=== PATIENT | male | born 1955 | race Caucasian/White ===

== ENCOUNTER → 2023-11-26 10:47 | Outpatient (REF) | payer MEDICARE, OTHER, SELFPAY ==
[2023-11-26 11:59] LABS: % Basophils 0.6 % (0-2); % Eosinophils 2.9 % (0-6); % Immature Granulocytes 0.2 % (0-0.5); % Lymphocytes 18.9 % (20.5-51.1); % Monocytes 6.5 % (1.7-9.3); % Neutrophils 70.9 % (42.2-75.2); Absolute Eosinophils 0.2 10^3/uL (0-0.7); Absolute Monocytes 0.3 10^3/uL (0.1-0.6); Absolute Neutrophils 3.7 10^3/uL (1.4-6.5); Hematocrit 38.5 % (39.0-52.0); Hemoglobin 12.9 g/dL (13.0-18.0); Mean Corp Hgb Conc. 33.5 g/dL (33.0-37.0); Mean Corpuscular Hgb 31.1 pg (27.0-31.0); Mean Corpuscular Volume 92.8 fL (80.0-94.0); Mean Platelet Volume 9.7 fL (7.4-10.4); Nucleated Red Blood Cells % 0 % (-); Platelet Count 162 10^3/uL (130-400); Red Blood Cell Count 4.15 10^6/uL (4.70-6.10); Red Cell Dist. Width 14.1 % (11.5-14.5); White Blood Cell Count 5.2 10^3/uL (4.8-10.8)
[2023-11-26 12:08] LABS: INR 1.16; PT 14.8 Sec (11.4-14.6)
[2023-11-26 12:22] LABS: ALT (SGPT) 24 U/L (0-50); AST (SGOT) 29 U/L (17-59); Albumin 3.9 g/dl (3.5-5.0); Alkaline Phosphatase 89 U/L (38-126); Blood Urea Nitrogen 30 mg/dl (9-20); Calcium 9.5 mg/dl (8.4-10.2); Carbon Dioxide 31 mmol/L (22-30); Chloride 106 mmol/L (98-107); Glucose 104 mg/dl (70-99); Magnesium 2.4 mg/dl (1.6-2.3); Potassium 4.3 mmol/L (3.5-5.1); Sodium 142 mmol/L (135-145); Total Bilirubin 0.5 mg/dl (0.2-1.3); Total Protein 6.4 g/dl (6.3-8.2); eGFR > 60.00
== END ==
LOC: SDSPAT 10:47
PROVIDERS: ATTENDING PHYSICIAN Internal Medicine Cardiovascular Disease; FAMILY PHYSICIAN Family Medicine; OTHER PHYSICIAN Internal Medicine Cardiovascular Disease
DX: Z01.818 Encounter for other preprocedural examination (principal); I48.91 Unspecified atrial fibrillation
CPT/HCPCS: 36415; 80053; 83735; 85025; 85610; 86850; 86900; 86901

== ENCOUNTER 2023-12-04 05:59 | Day surgery (SDC) | payer MEDICARE, OTHER, SELFPAY ==
[2023-11-26 11:04] VITALS: BMI 41.6
[2023-12-04] VITALS (22 sets, daily range): BP systolic 84–121; BP diastolic 48–84; BMI 40.2
[2023-12-04 07:03] LABS: Glucose - Point of Care 108 mg/dl (70-99)
[2023-12-04 09:34] LABS: ACT-LR - POC 256 Seconds (116-155)
[2023-12-04 10:31] LABS: ACT-LR - POC 265 Seconds (116-155)
[2023-12-04 10:59] LABS: ACT-LR - POC 366 Seconds (116-155)
[2023-12-04 11:15] LABS: ACT-LR - POC 276 Seconds (116-155)
--- NOTE | 2023-12-04 11:57 | ITS.CL.ABL ---
Environmental Associate - Ablation
Ablation
Procedure Report:
ELECTROPHYSIOLOGY ABLATION STUDY
�
DATE:: December 04, 2023���������������������������� REFERRING: Dr. Giovanny Ramirez
�
INDICATION: Paroxysmal supraventricular tachycardia in the form of atrial flutter. 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
�
HISTORY: See H and P.� As above
�
ANTIARRHYTHMIC DRUG: Amiodarone
�
PRE-PROCEDURE PRATEEK: No atrial thrombus on intracardiac ultrasound
�
PRESENTING RHYTHM: Typical atrial flutter cycle length 320 ms
�
'TIME-OUT':� called and confirmed.
�
SEDATION/ANESTHESIA:� provided via the anesthesia department using general anesthesia (LMA).
�
INTRAVENOUS/ARTERIAL ACCESS:
Right femoral venous - 8Fr
Left femoral venous - 8 Fr, 6 Fr
Figure of 8 suture was utilized
Long sheath were utilized for all 3 access sites due to extremely challenging body habitus. There was a large thigh folds above which the true inguinal ligaments was utilized. A long 7 Niuean Cook was utilized under direct ultrasound guidance with
3 front wall venous access performed. Over Seldinger technique long sheath were placed. We were able to navigate a 10 Niuean steerable sheath through the right groin to perform the ablation but could not advance the 12 Niuean Contour sheath due to
adhesions at the venous access site. Of note the patient has a bilateral hip replacements adding to the scar tissue in this region. Serial dilation was required to allow the 10 Niuean steerable sheath to access the IVC system.
Ultrasound guidance for bilateral femoral vein access was utilized by me to obtain access with demonstration of normal anatomy
CHADS-VASC Score:
�
HAS-Bled Score
�
PROCEDURE:�
1.� A decapolar CS catheter was placed within the CS for mapping and pacing.� This was also used as the reference catheter for the 3-D map. The patient with activation mapping was determined to have typical counterclockwise right atrial flutter
with both activation and entrainment performed. The lateral RA and proximal coronary sinus were in the circuit and the lateral CS was out of the circuit. Activation map with multipolar catheter demonstrated counterclockwise activation in the right
atrium. The anatomy was extremely challenging with a deep pouch at the IVC and septal region as well as several small pouches along the mid isthmus. Dense ablation was performed in both the septal medial and finally lateral line for greater than
20 minutes of radiofrequency energy. Tachycardia terminated at the mid isthmus on the septal aspect but bidirectional block was brought about at the valve extremely laterally after 2 remapped's of the line with coronary sinus pacing to look for
breakthrough. Once bidirectional block was achieved this was durable for greater than 45 minutes and intra isthmus conduction time was 210 ms bilaterally. Entrainment was consistent with isthmus dependent flutter although given the area of block
it is possible that the flutter was partially isthmus dependent.
�
2. The intracardiac ultrasound catheter was positioned in the RA to identify the FO for targeting of transseptal puncture, assist� in identification of the pulmonary vein ostia, monitoring pre and post ablation pulmonary vein flow velocities,
monitoring for 'bubble' formation during RF application as a sign of thermal injury,� and to monitor for pericardial effusion during mapping and ablation procedure.�� Left atrial size, LV ejection fraction, and pulmonary vein flows were monitored
pre and post ablation procedure. The other valves were inspected and found to be free of significant regurgitation or stenosis.
�
3.� Half of the calculated heparin bolus was administered prior to the first transeptal puncture.� Transseptal puncture was performed to diagnose RA and LA pressure so that safety of LA mapping and ablation could be further assessed, and to access
the left atrium and pulmonary veins for mapping and ablation.� This entailed advancing an 10 Niuean steerable with dilator into the superior vena cava and withdrawing both (monitoring intracardiac ultrasound, fluoroscopy and tip pressure) with the
tip oriented toward the atrial septum.� The fossa ovalis was engaged (indicated by sudden displacement of the sheath tip as well as tenting of the fossa seen on intracardiac ultrasound).� Left atrial access required a pass with the Nicol
needle extended.� Left atrial catheter position was confirmed by pressure monitoring (RA mean pressure 4 mm Hg and LA mean presure 12 mm Hg), LA saturation (99 %),� as well as fluoroscopy.� The sheath was advanced over the dilator and positioned in
the left atrium.� This procedure was repeated for the Agilis sheath.� The remainder of the calculated heparin bolus was administered and heparin was
infused to maintain ACT at 300 -350 seconds throughout the case.
As above we could not pass anything larger than the 10 Niuean steerable sheath into the IVC from the right groin access site. As such we performed left atrial ablation after transseptal puncture with the multipolar catheter and tactic cath
radiofrequency ablation catheter.
4.� RA pacing was performed via the proximal decapolar poles and LA pacing was performed via the distal decapolr poles.
�
5. A quadrapolar catheter was first positioned at the His position for His Bundle recording which was tagged via the 3-D Navex sytem, and then passed to the RVA for RV pacing and recording.
�
6. 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 There was connection at the kylah of the right middle to right inferior pulmonary vein and the kylah on the
anterior aspect of the left superior pulmonary vein. The left superior pulmonary vein and right middle pulmonary veins were reisolated and the posterior wall was isolated with entrance and exit block in all 5 pulmonary veins and the posterior wall.
�
7.� Next, a 3-D map was created using Navex.�� A 3-D reconstructed CT image was compared to the 3-D Navex map to assist in anatomic interpretation, mapping and ablation.� The CT image and the NavX image were fused.
�
8. As above at 30 W, 42 degrees and 15-second lesions targeting a 10 to 20 g force and an LSI of 4-4.5 the left superior pulmonary vein and the right middle pulmonary vein reisolated. Careful esophageal temperature monitoring was performed
isolating the posterior wall without temperature rise and entrance and exit block confirmed in the posterior wall as well. After this was performed EP study with atrial extrastimuli from the right and left atrium demonstrated no inducible other
tachyarrhythmias.
No dual ivan physiology was noted.
9. An RF line was also placed at the IVC-TVA isthmus to interupt the potential typical atrial flutter circuit.� At the end of RF at this site, pacing from the lateral side of the line and the medial side of the line was performed to evaluate for
bidirectinal block.�
�
�
TOTAL FLOURO TIME: 46 minutes 800 mGy
�
TOTAL RF DURATION: 26 minutes
�
REVERSAL OF HEPARIN: 40 mg of protamine, slow IV administration
�
COMPLICATIONS:�
None
Intracardiac US shows no pericardial effusion post ablation.
�
SUMMARY:��
Complex left atrial mapping and ablation.
Typical CTI flutter status post ablation. Extremely challenging anatomy with termination and bidirectional block and intra isthmus conduction time of 210 ms bidirectionally after 45-minute waiting period. Reisolation of the right inferior
pulmonary vein and left superior pulmonary vein as well as left atrial posterior wall isolation.
Noninducible for other tachyarrhythmia post ablation
RECOMMENDATIONS:
1. Consider same-day discharge
2. Resume anticoagulation
3.� Lower amiodarone to 200 mg daily
4.� Continue oral anticoagulation and beta-claribel
�
Copy to: Dr. Giovanny Ramirez
�
--- NOTE | 2023-12-04 12:30 | PTCARENOTE ---
Pt arrived to recovery room with dressings on bilateral arms. EPS staff state pt was moving his arms which bumped sides of table while extubation. Bilateral arms with 4x4 dressings in place with bloody drainage noted on both dressings.
--- NOTE | 2023-12-04 12:41 | PTCARENOTE ---
New and old EKG sent to Birdie Ge NP via [employer]. No new orders at this time. Will continue to monitor.
[2023-12-04 12:52] LABS: Glucose - Point of Care 154 mg/dl (70-99)
--- NOTE | 2023-12-04 13:30 | PTCARENOTE ---
Wet to dry dressings removed from bilateral arms. No further damage to skin noted. Right arm with skin tears x2 and ecchymosis around site. Left arm with skin tear with large amount of ecchymosis noted. Adaptic, 4x4 and paper tape applied to
bilateral arms over skin tear areas. Pt's at pt bedside. Will continue to monitor.
[2023-12-04] MEDS: TYLENOL 1000 MG PO (14:04)
--- NOTE | 2023-12-04 14:50 | PTCARENOTE ---
Dr Fritz at pt bedside speaking to pt and pt's . EKG given to Dr Fritz. No further orders noted at this time.
--- NOTE | 2023-12-04 15:12 | W.PN.UPDATE ---
Update Note
Progress Note Update
68 yo WM s/p CTI flutter and PVI (same day). He has had some back/neck pain from positioning on table, some relief with Tylenol ES, EKG SR with bifascicular block, b/l groin c/d/i. He will continue OAC Eliquis dose at 6pm at home. He will decrease
Amiodarone to 200mg daily, and continue metoprolol xl bid. Activity restrictions reviewed. He will f/u Dr. Ramirez in 6-8 weeks. He is for d/c home after 430p if groins stable and voiding.
SUMMARY:��
Complex left atrial mapping and ablation.
Typical CTI flutter status post ablation. Extremely challenging anatomy with termination and bidirectional block and intra isthmus conduction time of 210 ms bidirectionally after 45-minute waiting period. Reisolation of the right inferior
pulmonary vein and left superior pulmonary vein as well as left atrial posterior wall isolation.
Noninducible for other tachyarrhythmia post ablation
RECOMMENDATIONS:
1. Consider same-day discharge
2. Resume anticoagulation
3.� Lower amiodarone to 200 mg daily
4.� Continue oral anticoagulation and beta-claribel
�
Copy to: Dr. Giovanny Ramirez
�
[2023-12-04] MEDS: ANESTHETIC LOZENGE 1 LOZENGE PO (16:38)
== END 2023-12-04 16:45 | disposition home or self-care (01) ==
LOC: CATH 05:59
PROVIDERS: ATTENDING PHYSICIAN Internal Medicine Cardiovascular Disease; FAMILY PHYSICIAN Family Medicine; OTHER PHYSICIAN Internal Medicine Cardiovascular Disease
DX: I48.3 Typical atrial flutter (principal); I47.19 Other supraventricular tachycardia; I10 Essential (primary) hypertension; I48.19 Other persistent atrial fibrillation; I25.10 Atherosclerotic heart disease of native coronary artery without angina pectoris; I11.0 Hypertensive heart disease with heart failure; I50.42 Chronic combined systolic (congestive) and diastolic (congestive) heart failure; E11.9 Type 2 diabetes mellitus without complications
CPT/HCPCS: 93662; C1732; C1894; C1730; C1766 ×2; C2630; C1892; C1759; 82962; 85347; 93005; 93462; 93653

== ENCOUNTER 2024-09-08 10:24 | Day surgery (SDC) | payer MEDICARE, OTHER, SELFPAY ==
[2024-09-08] VITALS (19 sets, daily range): BP systolic 88–129; BP diastolic 50–91; BMI 38.7
[2024-09-08 11:39] LABS: Glucose - Point of Care 129 mg/dl (70-99)
[2024-09-08] MEDS: NSS 500 IV (11:50)
[2024-09-08 15:10] LABS: ACT-LR - POC 313 Seconds (116-155)
[2024-09-08 15:30] LABS: ACT-LR - POC 297 Seconds (116-155)
[2024-09-08 15:54] LABS: ACT-LR - POC 311 Seconds (116-155)
--- NOTE | 2024-09-08 16:03 | ITS.CL.ABL ---
Tub Puller - Ablation
Ablation
Procedure Report:
ELECTROPHYSIOLOGY ABLATION STUDY
DATE:: September 08, 2024�����������������������������REFERRING: Dr. Giovanny Ramirez
INDICATION: Persistent atrial fibrillation as well as typical atrial flutter which is recurred despite prior ablation therapy.
HISTORY: See H and P.��As above
ANTIARRHYTHMIC DRUG: Dofetilide
PRE-PROCEDURE PRATEEK: No intracardiac thrombus on intracardiac ultrasound
PRESENTING RHYTHM: A-fib
'TIME-OUT':��called and confirmed.
SEDATION/ANESTHESIA:��provided via the anesthesia department using general anesthesia (LMA).
INTRAVENOUS/ARTERIAL ACCESS:
Right femoral venous - 8Fr upgraded to a 16 [place] Citizen short sheath through which the 12 [place] Citizen steerable sheath was utilized
Left femoral venous - 8 Fr, 6 Fr
[id number] suture to bilateral femoral veins
Ultrasound guidance for bilateral femoral vein access was utilized by me to obtain access with demonstration of normal anatomy
CHADS-VASC Score:
HAS-Bled Score
PROCEDURE:
1.��A decapolar CS catheter was placed within the CS for mapping and pacing.��This was also used as the reference catheter for the 3-D map. There was bidirectional block across the prior CTI isthmus line only we performed additional lesions with
our F at 400 W for 5 seconds at the tricuspid annulus and PFA lesions back along the CTI as well as at the IVC junction where there was a prominent ridge and we also utilized PFA lesions on the IVC side of that ridge. Intra isthmus conduction time
of 180 ms was noted bidirectionally.
2. The intracardiac ultrasound catheter was positioned in the RA to identify the FO for targeting of transseptal puncture, assist��in identification of the pulmonary vein ostia, monitoring pre and post ablation pulmonary vein flow velocities,
monitoring for 'bubble' formation during RF application as a sign of thermal injury,��and to monitor for pericardial effusion during mapping and ablation procedure.���Left atrial size, LV ejection fraction, and pulmonary vein flows were monitored
pre and post ablation procedure. The other valves were inspected and found to be free of significant regurgitation or stenosis.
3.��Half of the calculated heparin bolus was administered prior to the first transeptal puncture.��Transseptal puncture was performed to diagnose RA and LA pressure so that safetey of LA mapping and ablation could be further assessed, and to access
the left atrium and pulmonary veins for mapping and ablation.��This entailed advancing an 10 [place] Citizen steerable sheath with dilator into the superior vena cava and withdrawing both (monitoring intracardiac ultrasound, fluoroscopy and tip pressure)
with the tip oriented toward the atrial septum.��The fossa ovalis was engaged (indicated by sudden displacement of the sheath tip as well as tenting of the fossa seen on intracardiac ultrasound).��Left atrial access required a pass with the
Brockenbrough needle extended.��Left atrial catheter position was confirmed by pressure monitoring (RA mean pressure 8 mm Hg and LA mean presure 14 mm Hg), LA saturation (99%),��as well as fluoroscopy.��The sheath was advanced over the dilator and
positioned in the left atrium.��This procedure was repeated for the Agilis sheath.��The remainder of the calculated heparin bolus was administered and heparin was
infused to maintain ACT at 300 -350 seconds throughout the case.
4.��RA pacing was performed via the proximal decapolar poles and LA pacing was performed via the distal decapolr poles.
5. A quadrapolar catheter was first positioned at the His position for His Bundle recording which was tagged via the 3-D Navex sytem, and then passed to the RVA for RV pacing and recording.
6. The 9 mm Laddis catheter was placed in each of the LIPV, LSPV, RSPV and the RIPV.��
7.��Next, a 3-D map was created using Navex.���A 3-D reconstructed CT image was compared to the 3-D Navex map to assist in anatomic interpretation, mapping and ablation.��The CT image and the NavX image were fused.
8. There is focal connection along the ligament of López of the left superior and left inferior pulmonary veins. There is also focal connection at the posterior kylah of the right pulmonary veins. We then targeted the pulmonary veins with
wide bad river band ablation including the left atrial appendage side of the ligament of López as well as the vein side. We then performed roofline and floor line connecting the wide bad river band lesions for left and right veins as well as targeting roof and
interatrial septal substrate. The patient was then converted to sinus rhythm demonstrating entrance and exit block in all 4 pulmonary veins with isolation of the roof posterior wall and floor of the left atrium. The patient was noninducible for
other tachyarrhythmia with atrial extrastimuli and burst atrial pacing post procedure. The patient is notable for left bundle branch aberrancy at 410 ms.
9. Normal sinus node and AV node function noted.
TOTAL FLOURO TIME: 12.6 minutes to 83 mGy
TOTAL RF DURATION: 10 seconds remainder with PF lesion
REVERSAL OF HEPARIN: 40 mg of protamine, slow IV administration
COMPLICATIONS:
None
Intracardiac US shows no pericardial effusion post ablation.
SUMMARY:��
Complex left atrial mapping and ablation.
Reisolation of the left veins of the ligament of López and the posterior kylah of the right veins. Reisolation of the left atrial posterior wall including the roof posterior wall proper and floor. Interatrial septal substrate targeted.
Additional ablation was performed along the CTI with radiofrequency and PFA. Noninducible for tach arrhythmia post procedure. As before right femoral vein access was extremely difficult given the patient's body habitus, prior gastric bypass
surgery, prior right hip replacement.
RECOMMENDATIONS:
1. Admit to monitored bed.
2. Resume anticoagulation
3.��Continue dofetilide
4.��Dissipate discharge September 09
Copy to: Dr. Giovanny Ramirez
[2024-09-08] MEDS: TYLENOL 650 MG PO ×2 (16:46→20:38)
[2024-09-08 17:05] LABS: Glucose - Point of Care 124 mg/dl (70-99)
--- NOTE | 2024-09-08 17:07 | PTCARENOTE ---
Pt reported pins and needles in left foot. Dr Fritz notified at 1700 when he stopped by to see pt. 'Foot felt better' within 15 minutes of reporting issue. suspected issue 'd/t 3 hrs on OR table'.. Marisa FIREARMS SALES ASSOCIATE also notified via tiger text. Will
continue to assess and comfort.
--- NOTE | 2024-09-08 18:00 | PTCARENOTE ---
Pt received post procedure. Pt awake, alert and oriented. Denies any pain or discomfort. Room air sat 99%. Bilateral groin sites WNL.
[2024-09-08] MEDS: LIPITOR 40 MG PO (20:35)
[2024-09-08] MEDS: PROTONIX 40 MG PO (20:35)
[2024-09-08] MEDS: ELIQUIS 5 MG PO (20:36)
[2024-09-08] MEDS: DIOVAN 80 MG PO (20:36)
[2024-09-08] MEDS: LOPRESSOR 50 MG PO (20:36)
[2024-09-08] MEDS: KCL 10 MEQ PO (20:36)
[2024-09-08] MEDS: COLACE 100 MG PO (20:36)
[2024-09-08] MEDS: ANESTHETIC LOZENGE 1 LOZENGE PO (20:39)
[2024-09-08 21:58] LABS: Glucose - Point of Care 231 mg/dl (70-99)
[2024-09-08] MEDS: NSS IV (23:03)
--- NOTE | 2024-09-09 00:41 | PTCARENOTE ---
Pt aaox3,VSS. b/l groin dsg CDI, fig 8 sutures removed, 4x4 gauxe w/ tegaderm applied over sites. c/o pain from left upper leg, no ecchymosis or swelling noted, tylenol given and repositioned with + effect, OOB w/ assist x1, tolerated well. POC
ongoing.
[2024-09-09 03:42] VITALS: BP 111/68
[2024-09-09 04:37] LABS: Hematocrit 36.5 % (39.0-52.0); Hemoglobin 12.2 g/dL (13.0-18.0); Mean Corp Hgb Conc. 33.4 g/dL (33.0-37.0); Mean Corpuscular Hgb 30.9 pg (27.0-31.0); Mean Corpuscular Volume 92.4 fL (80.0-94.0); Mean Platelet Volume 9.3 fL (7.4-10.4); Platelet Count 152 10^3/uL (130-400); Red Blood Cell Count 3.95 10^6/uL (4.70-6.10); White Blood Cell Count 5.2 10^3/uL (4.8-10.8)
[2024-09-09 05:00] LABS: Blood Urea Nitrogen 23 mg/dl (9-20); Calcium 9.1 mg/dl (8.4-10.2); Carbon Dioxide 27 mmol/L (22-30); Chloride 111 mmol/L (98-107); Estimated Creatinine Clearance > 125 ml/min; Glucose 201 mg/dl (70-99); Magnesium 2.5 mg/dl (1.6-2.3); Potassium 4.6 mmol/L (3.5-5.1); Sodium 142 mmol/L (135-145); eGFR > 60.00
--- NOTE | 2024-09-09 05:16 | PTCARENOTE ---
Pt remained SR on the monitor with occ PVC's, asymptomatic. BP stable, HR 55-65's. Pox 98% RA. CPAP kept on during night. R groin dsg CDI, left groin with scant amount of blood that stayed within the marked area. OOB x 1 assist, tolerated well, no
c/o dizziness. C/o left upper leg pain stating that 'feels like muscular pain' and was relieved when pt stood at bedside and ambulated to bathroom. call murillo within reach.
[2024-09-09 06:00] VITALS: BMI 38.5
[2024-09-09 07:03] VITALS: BP 101/69
[2024-09-09] MEDS: ASPIR LOW (ENTERIC COATED) 81 MG PO (07:52)
[2024-09-09] MEDS: LOPRESSOR 25 MG PO (07:52)
[2024-09-09] MEDS: ELIQUIS 5 MG PO (07:53)
[2024-09-09] MEDS: ALDACTONE 25 MG PO (07:57)
[2024-09-09] MEDS: COLACE PO (07:58)
[2024-09-09] MEDS: TIKOSYN 250 MCG PO (08:11)
--- NOTE | 2024-09-09 08:56 | CM ---
Reviewed chart. Met with and Mrs. Ceballos to review discharge plans. He states prior to admission he resides with his spouse in a one story home with four steps to enter. He states he resides in a skilled nursing community. He states prior to
admission he ambulates with a walker. He states he has a walker, rollator, single point cane and raised toilet seat. He states he has a prescription plan and uses [facility]. The discharge plan is to return home with his spouse when medically
stable.
--- NOTE | 2024-09-09 09:55 | W.PN.CARDCBS ---
Addendum entered and electronically signed by Tl Fritz MD 09/09/24 10:35:
Patient seen and examined
Agree with OUTSIDE PARTS SALESMAN note and assessment
Agree with OUTSIDE PARTS SALESMAN plan
Sinus rhythm overnight
����Physical Exam
���������������������General:��no apparent distress, not acutely ill
���������������������������Neck:��supple. no meningeal signs. normal psoterior pharynx
������������������������
���������������������������Heart:��s1/s2 regular rate and rhythm, no murmur. equal radial pulses.
��������������������������Lungs: ��no acute respiratory distress. clear bilaterally
����������������������Abdomen:�normal bowel sounds. not tender. no CVAT
��������������������������Neuro:��alert and oriented. no focal neurological deficits
������������������������������Skin: ��no rash
�����������������������Psychiatric:�well kept. interactive and cooperative
�����������������������Extremities:��no edema. no calf tenderness. negative homans. good distal pulses
Impression:
Symptomatic recurrent Afib/Aflutter
prior ablation 12/09
s/p redo PVI, CTI flutter ablation 09/08/24
ICMP EF 45% recovered now 55-60%
HTN
HLD
DM2
CAD PCI LAD 02/05
MO post gastric sleeve 2017
ANGELIC
h/o THR
Plan:
Sinus rhythm overnight on telemetry
tele SR/SB 1deg AVB
OAC Eliquis
continue dofetilide 250mcg bid-QTc stable
continue metoprolol 25am/50pm
Activity restrictions reviewed
f/u Dr. Ramirez in 2 mo
home today
Original Note:
Today's Communication / Plan
-
stable for d/c home
Impression / Plan
-
PCP: Jewel Macdonald DO
CDY: Giovanny Ramirez MD
Impression:
Symptomatic recurrent Afib/Aflutter
prior ablation 12/09
s/p redo PVI, CTI flutter ablation 09/08/24
ICMP EF 45% recovered now 55-60%
HTN
HLD
DM2
CAD PCI LAD 02/05
MO post gastric sleeve 2017
ANGELIC
h/o THR
Plan:
post ablation feels good
groins stable
tele SR/SB 1deg AVB
OAC Eliquis
continue dofetilide 250mcg bid
continue metoprolol 25am/50pm
Activity restrictions reviewed
f/u Dr. Ramirez in 2 mo
home today
SUMMARY:��
Complex left atrial mapping and ablation.
Reisolation of the left veins of the ligament of López and the posterior kylah of the right veins. Reisolation of the left atrial posterior wall including the roof posterior wall proper and floor. Interatrial septal substrate targeted.
Additional ablation was performed along the CTI with radiofrequency and PFA. Noninducible for tach arrhythmia post procedure. As before right femoral vein access was extremely difficult given the patient's body habitus, prior gastric bypass
surgery, prior right hip replacement.
Progress Note - Political Worker
Subjective
Date of Service: September 09, 2024
denies cp,sob
Objective
Labs:
09/09/24 03:54
09/09/24 03:54
Labs
Hgb 12.2 g/dL (13.0-18.0) L 09/09/24 03:54
Hct 36.5 % (39.0-52.0) L 09/09/24 03:54
Plt Count 152 10^3/uL (130-400) 09/09/24 03:54
Sodium 142 mmol/L (135-145) 09/09/24 03:54
Potassium 4.6 mmol/L (3.5-5.1) 09/09/24 03:54
BUN 23 mg/dl (9-20) H 09/09/24 03:54
Creatinine 0.8 mg/dL (0.7-1.3) 09/09/24 03:54
Glucose 201 mg/dl (70-99) H 09/09/24 03:54
Vital Signs and I&O:
Vital Signs
Temp Pulse Resp BP Pulse Ox
98 F 65 16 101/69 98
09/09/24 07:03 09/09/24 08:00 09/09/24 07:03 09/09/24 07:03 09/09/24 08:00
Vital Signs
Temp Pulse Resp BP Pulse Ox
98 F 65 16 101/69 98
09/09/24 07:03 09/09/24 08:00 09/09/24 07:03 09/09/24 07:03 09/09/24 08:00
Intake & Output
09/07/24 09/08/24 09/09/24 09/10/24
06:59 06:59 06:59 06:59
Intake Total 1859
Balance 1859
Physical Exam
Physical Exam
NAD< AOX3
S1, S2, RRR
CTAB, non labored
SNTND bsx4
b/l groins c/d/i no HT, soft
--- NOTE | 2024-09-09 10:38 | PTCARENOTE ---
Pt received this am OOB in the chair. Bilateral groin site dressings dry and intact with no bleeding or hematoma. Room air sat 98%. Denies any pain or sob. SR, rate in the 70's. Pt discharged to home with his . Discharge instructions given and
reviewed with pt and his with good understanding and all questions answered.
--- NOTE | 2024-09-09 13:54 | W.DS.TRANS ---
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
-
Discharge Instructions:
Discharge Diagnosis/Procedures Atrial fibrillation post ablation
Diet Low Cholesterol,2 Gram Sodium
Driving Restrictions No driving for 24 hours
Specialty Instructions Weigh Daily
Instructions:
Stand-Alone Forms: DC Instructions- Cath/EP Lab
Changes to Home Medications: No
Discharge Medications:
DC Medications w/original date entered in [employer]
atorvastatin 40 mg tablet 40 mg PO DAILY #90 tabs 01/25/20
torsemide 10 mg tablet 30 mg PO DAILY 01/25/20
apixaban 5 mg tablet (Eliquis) 5 mg PO BID ##0 06/08/21
aspirin 81 mg tablet,delayed release 81 mg PO DAILY #1 tab 06/08/21
spironolactone 25 mg tablet 25 mg PO DAILY 06/08/21
docusate sodium 100 mg capsule (Colace) 100 mg PO BID 09/05/22
oxphfsss-mmvbygyz-ngsf 45 mg-folic acid 800 mcg-vit K 120 mcg capsule (Bariatric Multivitamins) 1 cap PO TID 09/05/22
potassium chloride 10 mEq tablet,extended release 10 meq PO QPM 09/05/22
valsartan 80 mg tablet 80 mg PO QPM 09/05/22
Calcium Citrate + D3 12.5 Mcg 1 tab PO BID 12/04/23
acetaminophen 500 mg tablet 1,000 mg PO Q6H PRN pain in hips and shoulders 12/04/23
metoprolol tartrate 50 mg tablet 25 mg PO DAILY 12/04/23
nitroglycerin 0.4 mg sublingual tablet 0.4 mg sublingual [id number] PRN chest pain #25 tabs 12/04/23
pantoprazole 40 mg tablet,delayed release 40 mg PO QPM 12/04/23
dofetilide 250 mcg capsule 250 mcg PO Q12H 09/08/24
metoprolol tartrate 50 mg tablet 50 mg PO QPM 09/08/24
Home Medication Changes
Pending Results: No
[2024-09-09 21:23] LABS: Hepatitis C Antibody Negative (Negative)
== END 2024-09-09 10:55 | disposition home or self-care (01) ==
LOC: CATH 10:24
PROVIDERS: Nurse Practitioner Adult Health; ATTENDING PHYSICIAN Internal Medicine Cardiovascular Disease; FAMILY PHYSICIAN Family Medicine; OTHER PHYSICIAN Internal Medicine Cardiovascular Disease
DX: I48.19 Other persistent atrial fibrillation (principal); I48.3 Typical atrial flutter; Z79.01 Long term (current) use of anticoagulants; Z79.82 Long term (current) use of aspirin; Z79.899 Other long term (current) drug therapy; I48.91 Unspecified atrial fibrillation; I25.5 Ischemic cardiomyopathy; I10 Essential (primary) hypertension; E11.9 Type 2 diabetes mellitus without complications; E78.5 Hyperlipidemia, unspecified; G47.33 Obstructive sleep apnea (adult) (pediatric); I25.10 Atherosclerotic heart disease of native coronary artery without angina pectoris; Z95.5 Presence of coronary angioplasty implant and graft; Z98.84 Bariatric surgery status; I49.1 Atrial premature depolarization; Z96.641 Presence of right artificial hip joint
CPT/HCPCS: C1730; C1894 ×2; C1769; C1766; C1892; C1759; C1733; 80048; 82962; 83735; 85027; 85347; 86803; 86850; 86900; 86901; 93005; 93655; 93656; 93657